=== PATIENT | female | born 1975 | race Caucasian/White ===

== ENCOUNTER 2024-01-07 22:36 | Emergency (ER) | payer OTHER ==
[~2024-01-07] VITALS: Ht 162.6 cm; Wt 46.3 kg
[2024-01-07 22:39] VITALS: BP 107/79; PULSE 98; RESP 24; TEMP 98; O2SAT 100
== END 2024-01-07 23:08 | disposition left against medical advice (07) ==
LOC: ER 22:37
DX: R42 Dizziness and giddiness (principal); R51.9 Headache, unspecified; Z53.21 Procedure and treatment not carried out due to patient leaving prior to being seen by health care provider